=== PATIENT | male | born 1960 | race Caucasian/White ===

== ENCOUNTER 2016-04-07 05:41 | Outpatient (CLI) | payer BC, OTHER ==
[~2016-04-07] VITALS: Ht 188 cm; Wt 97.5 kg
--- OUTSIDE RECORDS SUMMARY | 2016-04-07 05:44 | XMS REPORT ---
Author Author [facility] Organization [facility] Address [address], [place] [id number] Phone [phone] Care Team Providers Care Egg Breaking Machine Operator Name Role Phone THUY BATISTA MD PP [phone] Summary purpose TRANSITION OF CARE AUTO GENERATION Chief Complaint and Reason for Visit No authorized Reason for Visit (Admitting Diagnosis) is available for this visit. Problem list No authorized problems tracked for continuity of care are available for this visit. Encounters No authorized problems tracked for encounter diagnoses are available for this visit. Medications No medications recorded for this patient visit Allergies, adverse reactions, alerts No allergy information is available for this patient. Immunizations No immunizations recorded for this patient visit Relevant diagnostic tests and/or laboratory data No authorized results are available for this patient visit History of procedures No procedures recorded for this patient visit. Functional status No functional or cognitive status observations are available for this visit. Vital signs No authorized vital signs are available for this visit. Social history No Social History or smoking status observations were recorded for this visit. ( Unknown if ever smoked.) Treatment Plan No treatment plan text is available for this visit. Hospital discharge instructions No discharge instruction text is available for this visit.
[2016-04-07] MEDS ORDERED: NF-LT10/20 PO (15:55)
== END 2016-04-07 15:59 ==
LOC: PREOP 05:41
PROVIDERS: ATTEND Internal Medicine
DX: Z01.818 Encounter for other preprocedural examination (principal); Z12.11 Encounter for screening for malignant neoplasm of colon; K21.9 Gastro-esophageal reflux disease without esophagitis

== ENCOUNTER 2016-04-09 07:07 | Day surgery (SDC) | payer BC ==
[~2016-04-09] VITALS: Ht 188 cm; Wt 97.5 kg
[~2016-04-09 07:07] MED LIST: NF-LT10/20 PO
--- OUTSIDE RECORDS SUMMARY | 2016-04-09 07:11 | XMS REPORT | Continuity of Care Document ---
Author Author [facility] Organization [facility] Address Unknown Phone Unavailable Care Team Providers Care Leak Operator [employer]affin Plant Name Role Phone Grayson Bridges PCP Unavailable Source Comments Some departments are not documenting in the electronic medical record. If you do not see the information that you expected, contact Release of Information in the Health Information Management department at [phone] for further assistance in locating additional records.[facility] Active Allergies and Adverse Reactions Not on File Current Medications Not on file Active Problems Not on file Most Recent Encounters Date Type Specialty Providers Description 02/05/2016 Orders Only Oncology Alfredo Canales MD Neuropathy (HCC) (Primary Dx); GE junction carcinoma (HCC) Social History Tobacco Use Types Packs/Day Years Used Date Never Assessed Plan of Care Health Maintenance Due Date Last Done Comments Hepatitis C Screening 1960 Physical (Comprehensive) 1965 Exam Pertussis Vaccine 1969 Tetanus Vaccine 10/11/1975 Colorectal Cancer 2008 Screening Influenza Vaccine 10/09/2015 Results from Last 3 Months Not on file
--- OUTSIDE RECORDS SUMMARY | 2016-04-09 07:11 | XMS REPORT | Continuity of Care Document ---
Author Author [facility] Organization [facility] Address Unknown Phone Unavailable Care Team Providers Care Belt Brander Name Role Phone Grayson Bridges PCP Unavailable Source Comments Some departments are not documenting in the electronic medical record. If you do not see the information that you expected, contact Release of Information in the Health Information Management department at [phone] for further assistance in locating additional records.[facility] Active Allergies and Adverse Reactions Not on [...]
--- NOTE | 2016-04-09 07:21 | HISTORY AND PHYSICAL ---
DICTATING PHYSICIAN: Dr. Lozada DATE OF ADMISSION: 04/09/2016 Mr. Parry is a 55-year-old white male referred by Dr. Mendoza in [place] for panendoscopy for screening purposes. Both his mother and father succumbed to gastric cancer. His father in his 60s and his mother in her 80s. They both had a smoking history. His father had a history of drinking. His mother did not. He has not aware of a family history of colon cancer. He does report intermittent reflux symptoms for which he takes occasional antacids for. He does report 4 to 6 beers most days of the week and rarely drinks more than this. He has no past history of DUIs. He has no past smoking history. PAST MEDICAL HISTORY: 1. Noncontributory other than for hypertension which he takes Lotrel. 2. He takes occasional ibuprofen for low back discomfort. 3. He denies any radicular component to his pain. REVIEW OF SYSTEMS: He has had no bowel habit change. His weight has been stable. He denies melena, bright red blood per rectum and denies dysphasia. He also denies night sweats, chills or fever. FAMILY HISTORY: Mother of gastric cancer in her early 80s and father of gastric cancer in his 60s. SOCIAL HISTORY: He works for a [employer] and [place], [place] with no past smoking history and 4 to 6 beers alcohol consumption most days of the week. He has no significant past surgical history. PHYSICAL EXAMINATION: Physical examination reveals a well-appearing white male in no acute distress. HEENT EXAMINATION: Unremarkable. Sclera are nonicteric. There is no evidence for pallor. Oral cavity reveals a Mallampati class II configuration. NECK: Reveals no JVD, adenopathy or bruits. CHEST: Clear. CV: Reveals regular rate and rhythm without murmur, S3 or S4. Blood pressure is 120/84. ABDOMEN: Soft, supple without masses, organomegaly or tenderness. EXTREMITIES: Reveal no cyanosis, clubbing, or edema. ASSESSMENT: The patient is set-up for panendoscopy for screening purposes deemed to be of higher than average risk considering that he has two parents who of gastric cancer. He has more than what would be considered moderate drinking, which was discussed. I strongly advise to decrease alcohol consumption to no more than 2 beers per day. I discussed the importance of colorful diet and decreasing process meats in addition to regular physical activity for reducing malignancy and vascular disease risk for overall health benefit. I thank you for the referral was pleasant gentleman. Sincerely, Simón Lozada, Prep instructions with split dose Morris-prep kit were given and the patient was set-up for panendoscopy for April 09. Job ID: [id number] Dictated Date: 04/06/2016 19:33:00 Psychiatric Tech Date: 04/07/2016 09:14:18/savanah
[2016-04-09] MEDS ORDERED: 1/2 NS IV SOLUTION 1,000 ML IV STA (07:36)
[2016-04-09 07:40] VITALS: BP 149/105
[2016-04-09] MEDS ORDERED: 1/2 NS IV SOLUTION 1,000 ML IV ONE (07:40)
[2016-04-09] MEDS ORDERED: NALOXONE 0.4 MG/ML 1 ML (NARCAN) VIAL IVP PRN (07:45)
[2016-04-09] MEDS ORDERED: HURRICAINE EXT TUBE (BENZOCAINE) XX PRN (07:45)
[2016-04-09] MEDS ORDERED: FLUMAZENIL (ROMAZICON) 0.1 MG/ML 5 ML VIAL INJ PRN (07:45)
--- NOTE | 2016-04-09 08:04 | Pre-Op Note & Conscious Sedat ---
Pre-Operative Progress Note H&P Reviewed The H&P was reviewed, patient examined and no changes noted. Date H&P Reviewed: Apr 09, 2016 Time H&P Reviewed: 08:03 Conscious Sedation Pre-Proced ASA Class: 2 Airway Mallampati Classification: ([place] appropriate class) I. II. III, IV Lungs Heart ASA score ASA 1: a normal healthy patient ASA 2: a patient with a mild systemic disease (mid diabetes, controlled hypertension, obesity ASA 3: a patient with a severe systemic disease that limits activity (angina , COPD, prior Myocardial infarction) ASA 4: a patient with an incapacitating disease that is a constant threat to life (CHF, renal failure) ASA 5: a moribund patient not expected to survive 24 hrs. (ruptured aneurysm) ASA 6: a declared brain patient whose organs are being harvested. For emergent operations, add the letter E after the classification Grade 2 Sedation Plan: Analgesia, Amnesia, Plan communicated to team members, Discussed options with patient/fam, Discussed risks with patient/fam Note The patient is an appropriate candidate to undergo the planned procedure, sedation, and anesthesia. The patient immediately re-assessed prior to indication. KORTNEY CELIS MD Apr 09, 2016 08:04
[2016-04-09] MEDS ORDERED: fentaNYL INJECTION 100 MCG/2 ML AMP ONE ×2 (08:23)
[2016-04-09] MEDS ORDERED: LIDOCAINE JELLY 2% (XYLOCAINE) 5 ML TUBE ONE (08:23)
[2016-04-09] MEDS ORDERED: MIDAZOLAM 2 MG/2 ML (VERSED) VIAL ONE ×4 (08:23→08:52)
[2016-04-09] MEDS ORDERED: HURRICAINE EXT TUBE (BENZOCAINE) ONE (08:24)
[2016-04-09] MEDS: fentaNYL INJECTION 100 MCG/2 ML AMP IVP PRN ×2 (08:25→08:44)
[2016-04-09] MEDS: MIDAZOLAM 2 MG/2 ML (VERSED) VIAL IVP PRN ×3 (08:27→08:55)
[2016-04-09] MEDS: LIDOCAINE JELLY 2% (XYLOCAINE) 5 ML TUBE MM PRN ×2 (08:27→09:01)
[2016-04-09 09:40] VITALS: BP 138/99
[2016-04-09 10:10] VITALS: BP 128/93
[2016-04-09 12:20] VITALS: BP 128/93
--- NOTE | 2016-04-10 22:56 | PROCEDURE REPORT ---
PROCEDURE PHYSICIAN: KORTNEY CELIS DATE OF PROCEDURE: 04/09/2016 COLONOSCOPY AND EGD SUMMARY: Colonoscopy was performed for screening purposes. EGD was performed due to a strong family history of gastric cancer noted in both parents in an individual who reports a drinking history of 4 to 6 beers most days of the week. COLONOSCOPY: The patient was placed in the left lateral decubitus position. Prior to undergoing colonoscopy, digital rectal evaluation was performed. Anal sphincter tone was normal and the perianal reflux was intact. No abnormalities were noted to digital inspection of the anal canal or distal rectal vault. The prostate was normal in size, anodular and nontender to digital inspection. The colonoscope was then inserted into the rectum and under direct visualization, advanced to cecum. The cecum was identified by identification of the ileocecal valve and cecal strap and the appendiceal orifice. Photographic documentation was obtained. Careful inspection was made as the colonoscope was withdrawn. FINDINGS: There is no evidence for internal or external hemorrhoids. No rectal abnormalities were noted. Present in the distal sigmoid colon was a diminutive polyp. It was photographed, biopsied and ablated, with no subsequent blood loss. Present in the mid sigmoid colon was a diminutive hyperplastic appearing polyp that was biopsied and ablated, with no subsequent blood loss. No sigmoid diverticulum were noted. The remainder of the sigmoid colon was unremarkable. The descending colon, splenic flexure, transverse colon, hepatic flexure, ascending colon and cecum were unremarkable. ASSESSMENT: Two diminutive polyps were removed, 1 from the distal sigmoid and the other one from the mid sigmoid colon. As long as there are no surprises on histopathology report, we will advocate consideration for repeat screening colonoscopy in 10 years as long as there are remains no family history for colon cancer. EGD: We then proceeded with EGD evaluation. The endoscope was inserted in the oral cavity and under direct visualization, the esophagus intubated. The scope was passed down the esophagus, through the stomach, and into the second of the duodenum. Careful inspection was made as the endoscope was withdrawn. The patient tolerated the procedure well. FINDINGS: The proximal mid and distal esophagus were unremarkable. The Z line was distinct. There was no evidence for hiatal hernia formation. There is no evidence for rings, webs, strictures or erosive esophagitis. No evidence to suggest Polanco's change was noted. Present in the proximal fundus of the stomach was an adenomatous appearing 8 mm polyp; it had a uniform mucosal appearance. It was photographed, biopsied and ablated with no subsequent blood loss. The cardia of the stomach was unremarkable and retroflexed photograph was obtained. The antrum, pylorus, pyloric channel, duodenal bulb, and second portion duodenum were unremarkable. ASSESSMENT: One proximal fundal polyp measuring approximately 8 mm in size was present, having adenomatous features. It was subsequently biopsied and ablated. We will likely be recommending surveillance EGD in one year as long as there are no surprises on histopathology report. We did discuss that his alcohol consumption and was not moderate, would be considered excessive and risk factor for esophageal malignancy, especially in light of his strong family, he was advised to decrease his consumption to no more than 2 beers daily of the only form of alcohol that he consumes. He is a nonsmoker. We also noted the fact that even after sedation, many of his blood pressures were above the 140/90 range and that alcohol may be having a negative impact on blood pressure elevation and that he should seek out a primary care provider for further investigation for high blood pressure. He had no evidence for obstructive breathing pattern to suggest sleep apnea during panendoscopy today. We will take the liberty of setting him up for repeat EGD evaluation in 1 year as long as there is no evidence for dysplasia or overt malignancy on today's polypectomies. Sincerely, Job ID: [id number] Dictated Date: 04/09/2016 12:00:51 Power Reactor Supervisor Date: 04/10/2016 22:47:16 / rajani
== END 2016-04-09 12:00 | disposition home or self-care (01) ==
LOC: ENDO 07:07
PROVIDERS: ATTEND Internal Medicine
DX: Z12.11 Encounter for screening for malignant neoplasm of colon (principal); D12.5 Benign neoplasm of sigmoid colon; K63.5 Polyp of colon; D13.1 Benign neoplasm of stomach; K29.50 Unspecified chronic gastritis without bleeding; F10.20 Alcohol dependence, uncomplicated; Z80.0 Family history of malignant neoplasm of digestive organs
CPT/HCPCS: 88305; 88342